=== PATIENT | male | born 1995 | race Caucasian/White ===

== ENCOUNTER 2023-08-18 15:25 | Outpatient (CLI) | payer MEDICAID, SELFPAY ==
[2023-08-18 15:38] VITALS: BMI 35.7
[2023-08-18] MEDS: TUBERCULIN 5 UNITS/0.1ML 1ML VIAL ID (15:39)
== END 2023-08-18 15:44 | disposition home or self-care (01) ==
LOC: UTC.OUT 15:30
PROVIDERS: Visit Provider Nurse Practitioner Family
DX: Z11.1 Encounter for screening for respiratory tuberculosis (principal)
CPT/HCPCS: 86580

== ENCOUNTER 2023-09-15 11:16 | Outpatient (CLI) | payer MEDICAID, SELFPAY ==
--- NOTE | 2023-09-15 11:22 | XR_ITS ---
FINAL REPORT CLINICAL HISTORY: low back pain, left hip pain WITH AMBULATION X2 MONTHS FINDINGS: Left hip Three views were obtained. There is no acute fracture or dislocation. The joint spaces appear normal. No soft tissue abnormality is identified. IMPRESSION: No acute process. Reviewed, Interpreted and Dictated by Miles Mckenzie III, MD Transcribed by Coral Morales Authenticated and [facility]
--- NOTE | 2023-09-15 11:22 | XR_ITS ---
FINAL REPORT CLINICAL HISTORY: low back pain WITH AMBULATION X2 MONTHS FINDINGS: LUMBAR SPINE Three views demonstrate no acute fracture. The disc spaces are well preserved. There is no malalignment. IMPRESSION: No acute process. Reviewed, Interpreted and Dictated by Miles Mckenzie III, MD Transcribed by Coral Morales Authenticated and [facility]
== END 2023-09-15 23:59 | disposition home or self-care (01) ==
LOC: RAD 11:17
PROVIDERS: Visit Provider Nurse Practitioner
DX: M25.552 Pain in left hip (principal); M54.50 Low back pain, unspecified
CPT/HCPCS: 72100; 73502